=== PATIENT | female | born 1995 | race Caucasian/White ===

== ENCOUNTER 2023-02-12 13:50 | Emergency (ER) | payer OTHER ==
[~2023-02-12] VITALS: Ht 170.2 cm; Wt 56.2 kg
[2023-02-12] MEDS ORDERED: ZITHROMAX250 MG PO (15:09)
== END 2023-02-12 15:22 | disposition home or self-care (01) ==
LOC: ED 13:50
DX: J02.0 Streptococcal pharyngitis (principal); Z88.0 Allergy status to penicillin
CPT/HCPCS: 87880; 99283